=== PATIENT | male | born 1995 | race Caucasian/White ===

== ENCOUNTER → 2024-05-24 | Outpatient (CLI) | payer OTHER ==
[~2024-05-24] MED LIST: AUGMENTIN 875875 MG PO; CEPHALEXIN500 M1 PO; MOTRIN800 MG PO
== END | disposition home or self-care (01) ==
LOC: ZWMC 17:46
PROVIDERS: ATTEND Nurse Practitioner Family
DX: Z11.52 Encounter for screening for COVID-19 (principal); Z20.822 Contact with and (suspected) exposure to COVID-19

== ENCOUNTER 2024-09-06 15:15 | Emergency (ER) | payer SELFPAY ==
[~2024-09-06] VITALS: Ht 170.1 cm; Wt 86.2 kg
[2024-09-06 15:34] VITALS: BP 113/93
[2024-09-06] MEDS ORDERED: Ondansetron Hydrochloride 4 MG/2 ML VIAL IV ONE (15:35)
[2024-09-06] MEDS ORDERED: SODIUM CHLORIDE 0.9% 1,000 ML IV ONE (15:35)
[2024-09-06 15:49] LABS: BASO % 0.1 % (0.0-1.0); HEMATOCRIT 46.9 % (42.0-52.0); MEAN CELL VOLUME 90.5 fl (80.0-94.0); MEAN CORPUSCULAR HGB 29.5 pg (27.0-31.0); MEAN CORPUSCULAR HGB CONC 32.6 g/dl (33.0-37.0); MEAN PLATELET VOLUME 8.8 fl (9.6-12.3); MONO # 1.1 10*3/uL (0.1-1.0); MONO % 15.4 % (3.0-9.0); NEUT # 4.8 10*3/uL (2.3-7.9); NEUT % 70.1 % (47.0-73.0); PLATELET COUNT AUTOMATED 247 10*3/uL (130-400); RED BLOOD COUNT 5.18 10*6/uL (4.50-5.90); RED CELL DISTRI WIDTH 12.8 % (0-14.5); WHITE BLOOD COUNT 6.8 10*3/uL (4.8-10.8)
[2024-09-06 16:07] LABS: BUN 9 mg/dl (9-23); CHLORIDE 100 mmol/L (98-107); POTASSIUM 3.8 mmol/L (3.4-5.1)
[2024-09-06] MEDS ORDERED: TAMIFLU 75MG CA75 MG PO (16:58)
[2024-09-06] MEDS ORDERED: Ondansetron4 MG PO (16:58)
== END 2024-09-06 17:08 | disposition home or self-care (01) ==
LOC: ED 15:15
PROVIDERS: Emergency Medicine
DX: J10.1 Influenza due to other identified influenza virus with other respiratory manifestations (principal); Z20.822 Contact with and (suspected) exposure to COVID-19; R11.2 Nausea with vomiting, unspecified; R19.7 Diarrhea, unspecified

== ENCOUNTER → 2025-04-13 | Outpatient (CLI) | payer OTHER ==
[~2025-04-13] MED LIST changes: +Ondansetron4 MG PO; +TAMIFLU 75MG CA75 MG PO
== END | disposition home or self-care (01) ==
LOC: MRI 11:00
PROVIDERS: ATTEND Orthopaedic Surgery
DX: S82.291A Other fracture of shaft of right tibia, initial encounter for closed fracture (principal); S83.8X1A Sprain of other specified parts of right knee, initial encounter; M71.21 Synovial cyst of popliteal space [Baker], right knee; M25.561 Pain in right knee; M25.461 Effusion, right knee; M25.861 Other specified joint disorders, right knee; X58.XXXA Exposure to other specified factors, initial encounter; Y93.89 Activity, other specified; Y92.89 Other specified places as the place of occurrence of the external cause; Y99.8 Other external cause status